=== PATIENT | female | born 1950 | race Caucasian/White ===

== ENCOUNTER → 2018-10-16 15:48 | Outpatient (CLI) | payer OTHER, SELFPAY ==
--- NOTE | 2018-10-16 15:52 | BI_ITS ---
MAMMOGRAPHY - BILATERAL SCREENING REASON FOR EXAM: Female, 68 years old. Routine annual screening examination. PERTINENT HISTORY: Personal history of breast cancer. Prior left lumpectomy with radiation treatment and chemotherapy. TECHNIQUE: Digital bilateral breast blake (3D mammographic acquisition) in the CC and MLO projections. 2-D mediolateral oblique (MLO) and craniocaudad (CC) views of both breasts were obtained. CAD: Full Field Digital Mammography with Computer Added Detection was performed. COMPARISON: Comparison is made with prior study dated August 28, 2017 and July 04, 2016. FINDINGS: Breast Composition: The breasts are heterogeneously dense, which may obscure small masses. There are no dominant masses or suspicious calcifications. The patient is status post lumpectomy in the deep upper lateral aspect of the left breast with resultant postoperative scarring in the architectural distortion. This is unchanged. No other significant abnormalities are identified. There has been no significant change since the prior study. BI/SCREENING MAMM (CAD), BILAT IMPRESSION: Stable bilateral screening mammogram. Yearly follow-up mammogram recommended. (A) ASSESSMENT CATEGORY: BIRADS Category 2: Benign. A letter regarding these results will be sent to the patient by the facility within 30 days. Approximately 10% of breast cancers are not detected by mammography. A normal mammogram should not delay biopsy of a clinically suspicious abnormality. [id number] Electronically Signed: Ivan De La O, at 10:08 EDT , Service support ,
== END ==
PROVIDERS: Family Provider Family Medicine; PCP Family Medicine; Visit Provider Obstetrics & Gynecology
DX: Z12.31 Encounter for screening mammogram for malignant neoplasm of breast (principal)
CPT/HCPCS: 77063; 77067

== ENCOUNTER → 2019-10-06 09:47 | Outpatient (CLI) | payer OTHER, SELFPAY ==
[2019-09-29 17:01] VITALS: BMI 32.0
--- NOTE | 2019-10-06 09:53 | RAD_ITS ---
STUDY: X-RAY CHEST REASON FOR EXAM: Female, 69 years old. cough, ear infection TECHNIQUE: PA and lateral views of the chest. COMPARISON: None CT scan dated September 06, 2015. FINDINGS: Cardiac silhouette unremarkable. Pulmonary vascularity unremarkable. Aorta unremarkable. Right middle lobe airspace disease. COPD. No pleural effusions. Upper abdomen unremarkable. Osseous structures intact with mild degenerative features. No pneumothorax. RAD/Chest PA and Lateral IMPRESSION: Right middle lobe airspace disease (chronic atelectasis versus less likely infection) COPD Electronically Signed: Tyrone Miramontes DO at 9:45 EST Tel , Service support ,
== END ==
PROVIDERS: PCP Family Medicine; Referring Provider Nurse Practitioner Family; Visit Provider Nurse Practitioner Family
DX: R05 Cough (principal)
CPT/HCPCS: 71046

== ENCOUNTER → 2020-02-17 14:20 | Outpatient (CLI) | payer OTHER, SELFPAY ==
[2019-10-21 14:12] VITALS: BMI 32.1
--- NOTE | 2020-02-17 14:24 | BI_ITS ---
MAMMOGRAPHY - BILATERAL SCREENING REASON FOR EXAM: Female, 69 years old. Routine annual screening examination. PERTINENT HISTORY: Personal history of breast cancer. Prior left lumpectomy with radiation and chemotherapy. TECHNIQUE: Digital bilateral breast kathia (3D mammographic acquisition) in the CC and MLO projections. 2-D mediolateral oblique (MLO) and craniocaudad (CC) views of both breasts were obtained. CAD: Full Field Digital Mammography with Computer Added Detection was performed. COMPARISON: Comparison is made with prior examination dated October 16, 2018 and August 28, 2017. FINDINGS: Breast Composition: The breasts are heterogeneously dense, which may obscure small masses. There are no dominant masses or suspicious calcifications. Once again, the patient is status post lumpectomy and in the upper lateral aspect of the left breast with resultant postoperative scarring and architectural distortion. This is unchanged. No other significant abnormalities are identified. There has been no significant change since the prior study. BI/SCREEN MAMM (CAD) W/KATHIA BILAT IMPRESSION: Stable bilateral screening mammogram. Yearly follow-up mammogram recommended. (A) ASSESSMENT CATEGORY: BIRADS Category 2: Benign. A letter regarding these results will be sent to the patient by the facility within 30 days. Approximately 10% of breast cancers are not detected by mammography. A normal mammogram should not delay biopsy of a clinically suspicious abnormality. [id number] Electronically Signed: Ivan De La O, at 15:37 EDT , Service support ,
--- NOTE | 2020-02-17 14:27 | BD_ITS ---
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 COMPARISON: None. FINDINGS: Lumbar Spine (L1-L4): g/cm2 (0.933) / T-score (-2.1) / Z-score (-0.4) Findings are suggestive of osteopenia with a high fracture risk. Left Femur Total: g/cm2 (0.958) / T-score (-0.4) / Z-score (1.0) Left Femoral Neck: g/cm2 (0.893) / T-score (-1.0) / Z-score (0.6) Right Femur Total: g/cm2 (0.958) / T-score (-0.4) / Z-score (1.0) Right Femoral Neck: g/cm2 (0.907) / T-score (-0.9) / Z-score (0.7) BD/Dexa Bone Density Study IMPRESSION: The patient is considered osteopenic as outlined below according to World [employer] Organization (WHO) criteria with a high fracture risk. Reference Information: The T-score is the number of standard deviations above or below the standard which is normal for young adults at their peak bone mineral density. The World Health Organization (WHO) interprets the T-scores as follows: Above -1 Normal bone density Between -1 and -2.5 Osteopenia Equal to / or below -2.5 Osteoporosis As a practical clinical guideline, osteopenia may be graded as follows: Mild -1 through -1.5 Moderate -1.6 through -2.0 Severe -2.1 through -2.4 The Z-score is the number of standard deviations above or below age-matched controls. A Z-score of less than -1.5 would be considered abnormal. References: 1. NIH Osteoporosis and Related Bone Diseases http://www.osteo.org 2. International Society for Clinical Densitometry http://www.iscd.org 3. National Osteoporosis Foundation http://www.nof.org Electronically Signed: Ivan De La O, at 13:48 EDT , Service support ,
== END ==
PROVIDERS: PCP Family Medicine; Referring Provider Obstetrics & Gynecology; Visit Provider Obstetrics & Gynecology
DX: Z12.31 Encounter for screening mammogram for malignant neoplasm of breast (principal); Z13.820 Encounter for screening for osteoporosis
CPT/HCPCS: 77063; 77067; 77080

== ENCOUNTER → 2021-06-17 11:51 | Outpatient (CLI) | payer BC, SELFPAY ==
--- NOTE | 2021-06-17 11:54 | BI_ITS ---
MAMMOGRAPHY - BILATERAL SCREENING REASON FOR EXAM: Female, 71 years old. Routine annual screening examination. PERTINENT HISTORY: Personal history of breast cancer. Prior left lumpectomy with radiation treatment. TECHNIQUE: Digital bilateral breast kathia (3D mammographic acquisition) in the CC and MLO projections. 2-D mediolateral oblique (MLO) and craniocaudad (CC) views of both breasts were obtained. CAD: Full Field Digital Mammography with Computer Added Detection was performed. COMPARISON: Comparison is made with prior study dated 02/17/2020 and 10/16/2018. FINDINGS: Breast Composition: The breasts are heterogeneously dense, which may obscure small masses. There are no dominant masses or suspicious calcifications. Once again, the patient is status post lumpectomy in the upper lateral aspect of the left breast with resultant postoperative scarring and architectural distortion of the breast. Postoperative microcalcifications are seen at the operative site. No other significant abnormalities are identified. There has been no significant change since the prior study. BI/SCRN MAMM (CAD)W/KATHIA BILAT IMPRESSION: Stable bilateral screening mammogram. Yearly follow-up mammogram recommended. (A) ASSESSMENT CATEGORY: BIRADS Category 2: Benign. A letter regarding these results will be sent to the patient by the facility within 30 days. Approximately 10% of breast cancers are not detected by mammography. A normal mammogram should not delay biopsy of a clinically suspicious abnormality. [id number] Electronically Signed: Ivan De La O MD at 12:56 EST , Service support ,
== END ==
PROVIDERS: PCP Family Medicine; Referring Provider Obstetrics & Gynecology; Visit Provider Obstetrics & Gynecology
DX: Z12.31 Encounter for screening mammogram for malignant neoplasm of breast (principal)
CPT/HCPCS: 77063; 77067

== ENCOUNTER → 2022-07-25 | Outpatient (CLI) | payer BC, SELFPAY ==
--- NOTE | 2022-07-25 15:21 | BI_ITS ---
MAMMOGRAPHY - BILATERAL SCREENING REASON FOR EXAM: Female, 72 years old. Routine annual screening examination. PERTINENT HISTORY: Personal history of breast cancer. Prior left lumpectomy with radiation and chemotherapy. TECHNIQUE: Digital bilateral breast kathia (3D mammographic acquisition) in the CC and MLO projections. 2-D mediolateral oblique (MLO) and craniocaudad (CC) views of both breasts were obtained. CAD: Full Field Digital Mammography with Computer Added Detection was performed. COMPARISON: Comparison is made with prior study dated 06/17/2021 and 02/17/2020. FINDINGS: Breast Composition: The breasts are heterogeneously dense, which may obscure small masses. There are no dominant masses or suspicious calcifications. Once again, the patient is status post lumpectomy in the upper lateral aspect of the left breast with resultant postoperative scarring and architectural distortion. Surgical clips as well as dystrophic calcification are seen at the operative site. Surgical clips are also seen in the left axillary region. No other significant abnormalities are identified. There has been no significant change since the prior study. BI/SCRN MAMM (CAD)W/KATHIA BILAT IMPRESSION: Stable bilateral screening mammogram. Yearly follow-up mammogram recommended. (A) ASSESSMENT CATEGORY: BIRADS Category 2: Benign. A letter regarding these results will be sent to the patient by the facility within 30 days. Approximately 10% of breast cancers are not detected by mammography. A normal mammogram should not delay biopsy of a clinically suspicious abnormality. [id number] Electronically Signed: Ivan De La O MD at 8:20 EST ,
== END | disposition home or self-care (01) ==
LOC: OPBI 15:18
PROVIDERS: PCP Family Medicine; Visit Provider Student in an Organized Health Care Education/Training Program
DX: Z12.31 Encounter for screening mammogram for malignant neoplasm of breast (principal); Z92.21 Personal history of antineoplastic chemotherapy; Z85.3 Personal history of malignant neoplasm of breast
CPT/HCPCS: 77063; 77067

== ENCOUNTER → 2022-12-11 | Outpatient (CLI) | payer BC, SELFPAY ==
--- NOTE | 2022-12-11 10:28 | MRI_ITS ---
EXAM: MR HEAD WITHOUT AND WITH INTRAVENOUS CONTRAST CLINICAL INDICATION: None provided. tremor TECHNIQUE: Multiplanar and multisequence MR images of the brain were obtained without and with intravenous contrast. CONTRAST: clariscan 15ml IV COMPARISON: No relevant prior studies available. FINDINGS: BRAIN AND EXTRA-AXIAL SPACES: Unremarkable. No intra- or extra-axial hemorrhage. No evidence of acute infarct. No intracranial mass or mass effect. There is preservation of the [place]/white matter interface. Posterior fossa structures are unremarkable. Ventricles are appropriate for age. No hydrocephalus. Basal cisterns are patent. SELLA: Unremarkable. Normal sella turcica, pituitary gland, infundibular stalk, optic chiasm and hypothalamus. AUDITORY SYSTEM: Unremarkable. The internal auditory canals are patent. BONES/JOINTS: Unremarkable. No discrete lytic or blastic abnormalities. SINUSES: Sinus disease noted. MASTOID AIR CELLS: Unremarkable as visualized. Clear. ORBITS: Unremarkable as visualized. Both globes, extraocular muscles, optic nerves and retrobulbar fat appear unremarkable. VASCULATURE: Unremarkable as visualized. Normal flow voids in the major intracranial circulation. MRI/Brain W/WO Contrast IMPRESSION: No acute findings in the head/brain. Electronically Signed: Jorge L Agustin MD at 15:25 EDT ,
[2022-12-11 11:06] LABS: CREATININE FINGERSTICK < 0.9 mg/dL (0.55-1.02); EGFR FINGERSTICK > 60.0000 mL/min (>60)
== END | disposition home or self-care (01) ==
PROVIDERS: PCP Family Medicine; Referring Provider Family Medicine; Visit Provider Family Medicine
DX: G96.9 Disorder of central nervous system, unspecified (principal); R25.1 Tremor, unspecified
CPT/HCPCS: 70553; A9575

== ENCOUNTER → 2023-02-07 | Outpatient (CLI) | payer BC, SELFPAY ==
[2023-02-07 16:49] LABS: Absolute Lymphocyte Count 3.24 X10^3/uL (0.83-4.51); Absolute Neutrophil Count 6.1 X10^3/uL (2.0-7.7); Basophil# 0.05 X10^3/uL; Basophil% 0.5 % (0-1); Eosinophil# 0.19 X10^3/uL; Eosinophils% 1.8 % (0-5); Hematocrit 41.2 % (37-47); Hemoglobin 13.8 g/dL (12.0-15.0); Lymphocyte # 3.24 X10^3/ul (0.83-4.51); Lymphocyte % 31.3 % (19-41); Mean Corp Hgb Conc 33.5 g/dL (32-36); Mean Corpuscular Hgb 30.5 pg (27.0-32.0); Mean Corpuscular Volume 90.9 fL (81-99); Mean Platelet Vol. 9.4 fl (6.2-12.0); Monocyte% 6.8 % (0-10); NRBC Flagged by Analyzer 0 % (0-5); Neutrophil # 6.13 X10^3/uL (2.7-7.7); Neutrophil % 59.3 % (47-70); Platelet Count 251 K/mm3 (150-450); RBC Distribution Width CV 12.9 % (11.6-14.6); RBC Distribution Width SD 42.7 fl (35.1-43.9); Red Blood Count 4.53 M/mm3 (4.2-5.4); White Blood Count 10.3 K/mm3 (4.4-11.0)
[2023-02-07 17:21] LABS: Anion Gap 5 (5-15); BUN 18 mg/dL (7-18); BUN/Creat Ratio 24.8 RATIO (10-20); Calcium,Total 9.3 mg/dL (8.5-10.1); Chloride 105 mmol/L (98-107); Creatinine, Serum 0.73 mg/dL (0.55-1.02); EST Glomerular Filtration Rate 84 mL/min (>60); Est Glom Filt Rate - Afr Amer 102 mL/min (>60); Glucose 78 mg/dL (74-106); Potassium 4.5 mmol/L (3.5-5.1); Sodium Level 139 mmol/L (136-145); Thyroid Stim Hormone (TSH) 2.08 uIU/mL (0.358-3.74)
== END | disposition home or self-care (01) ==
LOC: BIMLAB 15:33
PROVIDERS: PCP Family Medicine; Referring Provider Family Medicine; Visit Provider Family Medicine
DX: R53.83 Other fatigue (principal); G96.9 Disorder of central nervous system, unspecified; R25.1 Tremor, unspecified; E78.00 Pure hypercholesterolemia, unspecified
CPT/HCPCS: 36415; 80048; 84443; 85025

== ENCOUNTER → 2024-05-27 | Outpatient (CLI) | payer BC, SELFPAY ==
--- NOTE | 2024-05-27 08:40 | BI_ITS ---
MAMMOGRAPHY - BILATERAL SCREENING REASON FOR EXAM: Female, 74 years old. Routine annual screening examination. PERTINENT HISTORY: Personal history of breast cancer. Prior left lumpectomy with radiation and chemotherapy. TECHNIQUE: Digital bilateral breast kathia (3D mammographic acquisition) in the CC and MLO projections. 2-D mediolateral oblique (MLO) and craniocaudad (CC) views of both breasts were obtained. CAD: Full Field Digital Mammography with Computer Added Detection was performed. COMPARISON: Comparison is made with prior study July 25, 2022 and June 17, 2021. FINDINGS: Breast Composition: The breasts are heterogeneously dense, which may obscure small masses. There are no dominant masses or suspicious calcifications. Once again, the patient is status post lumpectomy in the upper outer aspect of the left breast with resultant postoperative scarring and architectural distortion. Surgical clips are also seen in the left axilla. Stable dystrophic calcification at the operative site. No other significant abnormalities are identified. There has been no significant change since the prior study. BI/SCRN MAMM (CAD)W/KATHIA BILAT IMPRESSION: Stable bilateral screening mammogram. Yearly follow-up mammogram recommended. (A) ASSESSMENT CATEGORY: BIRADS Category 2: Benign. A letter regarding these results will be sent to the patient by the facility within 30 days. Approximately 10% of breast cancers are not detected by mammography. A normal mammogram should not delay biopsy of a clinically suspicious abnormality. [id number] Electronically Signed: Ivan De La O MD at 9:43 EDT ,
== END | disposition home or self-care (01) ==
LOC: OPBI 08:40
PROVIDERS: PCP Family Medicine; Referring Provider Family Medicine; Visit Provider Family Medicine
DX: Z12.31 Encounter for screening mammogram for malignant neoplasm of breast (principal); Z85.3 Personal history of malignant neoplasm of breast; Z92.21 Personal history of antineoplastic chemotherapy
CPT/HCPCS: 77063; 77067

== ENCOUNTER 2024-09-02 08:34 | Day surgery (SDC) | payer BC, SELFPAY ==
--- NOTE | 2024-09-01 09:14 | PAT.ANE_ITS ---
Pre-Assessment Diagnosis/Proposed Procedure Planned Operative Procedure(s): CSCOPE Anesthesia History Anesthesia History - glass cut off tender: Anesthesia History - glass cut off tender Hx Hospitalization No 08/29/24 13:49 Any Problems With Anesthesia No 08/29/24 13:49 Cholinesterase deficiency No 08/29/24 13:49 You/Your Family Experience No 08/29/24 13:49 fever (hyperthermia) with Relationship Recent Exposure to Contagious Disease Does patient have nerve No 08/29/24 13:49 stimulator Patient instructed to have device shut off --Does patient have Pacemaker or ICD? When Was Last Pacemaker Check QUESTION #4 FULL TEXT: You/Your Family Experience fever (hyperthermia) with Anesthesia Last Oral Intake Last Oral intake: Last Oral Intake NPO since Meds taken in AM with sips of water? Meds patient instructed to take am of surgery PONV PONV - glass cut off tender: PONV - glass cut off tender Female Yes 08/29/24 13:49 HX of Motion Sickness No 08/29/24 13:49 HX of N/V After Surgery No 08/29/24 13:49 Non-Smoker Yes 08/29/24 13:49 Duration of Surgery greater No 08/29/24 13:49 than 60 minutes Number of Risk Factors 2 08/29/24 13:49 PONV Score Moderate Risk 08/29/24 13:49 Height & Weight Height & Weight: Anesthesia: Height & Weight Height 5 ft 1 in 07/18/24 14:05 Respiratory Assessment Respiratory Assessment - glass cut off tender: Respiratory Tract Infection Hx - glass cut off tender Hx Respiratory Tract Infection No 08/29/24 13:49 STOP Sleep Apnea STOP Sleep Apnea - glass cut off tender: STOP Sleep Apnea - glass cut off tender Hx Hypertension No 08/29/24 13:49 Hx Sleep Apnea No 08/29/24 13:49 CPAP BIPAP Do you snore loudly (louder No 08/29/24 13:49 than talking or can be heard Do you often feel tired/ No 08/29/24 13:49 fatigued/ sleepy during daytime? Has anyone observed you stop No 08/29/24 13:49 breathing during sleep? STOP Results Negative 08/29/24 13:49 QUESTION #5 FULL TEXT : Do you snore loudly (louder than talking or can be heard through closed doors)? 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 History - glass cut off tender: /Reproductive Hx- glass cut off tender Hx Now No 08/29/24 13:49 Gestational Age (in weeks): EDC: Hx Hx Para Hx Section SAB No 08/29/24 13:49 PFSH Medical History Wears glasses Bladder disease Hepatitis Easy bruising Non-smoker History of edema Parkinson's disease History of anal fissures Osteoporosis High cholesterol Breast cancer Home Medications ?Medication ?Instructions ?Recorded ?Last Taken ?Type Osteo BiFlex with Vitamin D 1 cap PO DAILY 04/29/19 History lutein 20 mg capsule 20 mg PO DAILY 04/29/1908/07 History omega-3 fatty acids 500 mg capsule 500 mg PO DAILY 08/24/24 History turmeric 400 mg capsule 400 mg PO DAILY 09/26/19 History ascorbic acid (vitamin C) 1,000 mg 1 g PO DAILY 08/31/24 History tablet (C-1000) cholecalciferol (vitamin D3) 25 25 mcg PO DAILY 08/31/24 History mcg (1,000 unit) capsule (Vitamin D3) magnesium 250 mg tablet 250 mg PO DAILY 08/29/24 History Allergy/AdvReac Type Severity Reaction Status Date / Time No Known Allergies Allergy Verified 09/02/24 08:55 Family History Father Cancer Mother Parkinson disease Surgical History Hx of right cataract extraction Hx of left cataract extraction Hx of colonoscopy Status post breast lumpectomy History of carpal tunnel release History of exploratory laparotomy History of umbilical hernia repair Social History Smoking Status: Never smoker alcohol intake: never substance use type: does not use what type of physical activity do you participate in: decline to answer Recommendation Anesthesia Recommendation Anesthesia recommendation: OPTIMIZED for anesthesia
--- NOTE | 2024-09-01 11:04 | PAT.ANE_ITS ---
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 When Was Last Pacemaker Check QUESTION #4 FULL TEXT: You/Your Family Experience fever (hyperthermia) with Anesthesia Last Oral Intake Last Oral intake: Last Oral Intake NPO since Meds taken in AM with sips of water? 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 Has anyone observed you stop No 08/29/24 13:49 breathing during sleep? STOP Results Negative 08/29/24 13:49 QUESTION #5 FULL TEXT : Do you snore loudly (louder than talking or can be heard through closed doors)? 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: /Reproductive Hx- grounds/maintenance specialist Hx Now No 08/29/24 13:49 Gestational Age (in weeks): EDC: Hx Hx Para Hx Section SAB No 08/29/24 13:49 PFSH Medical History Wears glasses Bladder disease Hepatitis Easy bruising Non-smoker History of edema Parkinson's disease History of anal fissures Osteoporosis High cholesterol Breast cancer Home Medications ?Medication ?Instructions ?Recorded ?Last Taken ?Type Osteo BiFlex with Vitamin D 1 cap PO DAILY 04/29/19 Unknown History lutein 20 mg capsule 20 mg PO DAILY 04/29/19 Unknown History omega-3 fatty acids 500 mg capsule 500 mg PO DAILY 04/29/19 08/24/24 History turmeric 400 mg capsule 400 mg PO DAILY 09/26/19 08/24/24 History ascorbic acid (vitamin C) 1,000 mg 1 g PO DAILY 08/29/24 Unknown History tablet (C-1000) cholecalciferol (vitamin D3) 25 25 mcg PO DAILY 08/29/24 Unknown History mcg (1,000 unit) capsule (Vitamin D3) magnesium 250 mg tablet 250 mg PO DAILY 08/29/24 Unknown History Allergy/AdvReac Type Severity Reaction Status Date / Time No Known Allergies Allergy Verified 09/01/24 10:51 Family History Father Cancer Mother Parkinson disease Surgical History Hx of right cataract extraction Hx of left cataract extraction Hx of colonoscopy Status post breast lumpectomy History of carpal tunnel release History of exploratory laparotomy History of umbilical hernia repair Social History Smoking Status: Never smoker alcohol intake: never substance use type: does not use what type of physical activity do you participate in: decline to answer Audit: Pertinent Findings Pertinent Findings EKG Perinent findings: Last EKG NAD. Current Visit Impressions Current Visit Impressions: No new cardiac symptoms. Recommendation Anesthesia Recommendation Anesthesia recommendation: OPTIMIZED for anesthesia
--- NOTE | 2024-09-01 12:00 | PAT.ANESEVAL ---
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 When Was Last Pacemaker Check QUESTION #4 FULL TEXT: You/Your Family Experience fever (hyperthermia) with Anesthesia Last Oral Intake Last Oral intake: Last Oral Intake NPO since Meds taken in AM with sips of water? Meds patient instructed to take am of surgery PONV PONV - centerless grinder set up operator: PONV - centerless grinder set up operator Female Yes 08/29/24 13:49 HX of Motion Sickness No 08/29/24 13:49 HX of N/V After Surgery No 08/29/24 13:49 Non-Smoker Yes 08/29/24 13:49 Duration of Surgery greater No 08/29/24 13:49 than 60 minutes Number of Risk Factors 2 08/29/24 13:49 PONV Score Moderate Risk 08/29/24 13:49 Height & Weight Height & Weight: Anesthesia: Height & Weight Height 5 ft 1 in 07/18/24 14:05 Respiratory Assessment Respiratory Assessment - centerless grinder set up operator: Respiratory Tract Infection Hx - centerless grinder set up operator Hx Respiratory Tract Infection No 08/29/24 13:49 STOP Sleep Apnea STOP Sleep Apnea - centerless grinder set up operator: STOP Sleep Apnea - centerless grinder set up operator Hx Hypertension No 08/29/24 13:49 Hx Sleep Apnea No 08/29/24 13:49 CPAP BIPAP Do you snore loudly (louder No 08/29/24 13:49 than talking or can be heard Do you often feel tired/ No 08/29/24 13:49 fatigued/ sleepy during daytime? Has anyone observed you stop No 08/29/24 13:49 breathing during sleep? STOP Results Negative 08/29/24 13:49 QUESTION #5 FULL TEXT : Do you snore loudly (louder than talking or can be heard through closed doors)? 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 History - centerless grinder set up operator: /Reproductive Hx- centerless grinder set up operator Hx Now No 08/29/24 13:49 Gestational Age (in weeks): EDC: Hx Hx Para Hx Section SAB No 08/29/24 13:49 PFSH Medical History Wears glasses Bladder disease Hepatitis Easy bruising Non-smoker History of edema Parkinson's disease History of anal fissures Osteoporosis High cholesterol Breast cancer Home Medications ?Medication ?Instructions ?Recorded ?Last Taken ?Type Osteo BiFlex with Vitamin D 1 cap PO DAILY 04/29/19 Unknown History lutein 20 mg capsule 20 mg PO DAILY 04/29/19 Unknown History omega-3 fatty acids 500 mg capsule 500 mg PO DAILY 04/29/19 08/24/24 History turmeric 400 mg capsule 400 mg PO DAILY 09/26/19 08/24/24 History ascorbic acid (vitamin C) 1,000 mg 1 g PO DAILY 08/29/24 Unknown History tablet (C-1000) cholecalciferol (vitamin D3) 25 25 mcg PO DAILY 08/29/24 Unknown History mcg (1,000 unit) capsule (Vitamin D3) magnesium 250 mg tablet 250 mg PO DAILY 08/29/24 Unknown History Allergy/AdvReac Type Severity Reaction Status Date / Time No Known Allergies Allergy Verified 09/01/24 10:51 Family History Father Cancer Mother Parkinson disease Surgical History Hx of right cataract extraction Hx of left cataract extraction Hx of colonoscopy Status post breast lumpectomy History of carpal tunnel release History of exploratory laparotomy History of umbilical hernia repair Social History Smoking Status: Never smoker alcohol intake: never substance use type: does not use what type of physical activity do you participate in: decline to answer Audit: Pertinent Findings HISTORY of Pertinent Findings History of Pertinent Findings: EKG Pertinent Findings EKG Perinent findings Last EKG NAD. 09/01/24 11:10 Recommendation Anesthesia Recommendation Anesthesia recommendation: OPTIMIZED for anesthesia
[2024-09-02] VITALS (7 sets, daily range): BP systolic 96–121; BP diastolic 45–62; PULSE 66–79; RESP 14–20; TEMP 36.4–36.6; O2SAT 98–100; BMI 29.1
--- NOTE | 2024-09-02 09:25 | PCM.PRE.AN2 ---
ASA Classification* ASA Classification ASA Classification: 2 Assessment & Plan Anesthesia* Anesthesia Assessment Anesthesia Assessment: Discussed sedation and/or anesthesia options, risks, benefits, and alternatives with patient/parents/legal guardian/POA. Questions invited. The patient/parents/legal guardian/POA seems to understand and agrees to proceed with anesthesia plan. Reviewed the physical assessment, medical history, allergy history and patient home medications list prior to surgery/procedure/anesthetic and documented any changes. Performed airway and anesthesia risk assessments. Anesthesia Type Anesthesia Type: MAC History Source History Obtained from:: Patient and Chart Anesthesia Focused Assessment* Temperature: 97.9 F Pulse Rate: 79 Blood Pressure: 121/58 Respiratory Rate: 20 Pulse Ox: 100 Oxygen Delivery Method: Room Air Airway Assessment Mouth opens: >3 cm Mallampati Score: I Teeth Condition: Intact Neck Range of motion (ROM): Limited ROM (Slight decrease in extension) Focused Labs Anesthesia Preop lab: CBC WBC 10.3 K/mm3 (4.4-11.0) 02/07/23 15:33 RBC 4.53 M/mm3 (4.2-5.4) 02/07/23 15:33 Hgb 13.8 g/dL (12.0-15.0) 02/07/23 15:33 Hct 41.2 % (37-47) 02/07/23 15:33 Plt Count 251 K/mm3 (150-450) 02/07/23 15:33 CHEMISTRY Potassium 4.5 mmol/L (3.5-5.1) 02/07/23 15:33 Sodium 139 mmol/L (136-145) 02/07/23 15:33 BUN 18 mg/dL (7-18) 02/07/23 15:33 Creatinine 0.73 mg/dL (0.55-1.02) 02/07/23 15:33 Glucose 78 mg/dL (74-106) 02/07/23 15:33 TSH 2.08 uIU/mL (0.358-3.74) 02/07/23 15:33 COAG Pre-Assessment Diagnosis/Proposed Procedure Planned Operative Procedure(s): CSCOPE Anesthesia History 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 When Was Last Pacemaker Check QUESTION #4 FULL TEXT: You/Your Family Experience fever (hyperthermia) with Anesthesia Last Oral Intake Last Oral intake: Last Oral Intake NPO since 22:00 09/02/24 08:56 Meds taken in AM with sips of water? 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: PONV - supervisor beam department Female Yes 08/29/24 13:49 HX of Motion Sickness No 08/29/24 13:49 HX of N/V After Surgery No 08/29/24 13:49 Non-Smoker Yes 08/29/24 13:49 Duration of Surgery greater No 08/29/24 13:49 than 60 minutes Number of Risk Factors 2 08/29/24 13:49 PONV Score Moderate Risk 08/29/24 13:49 Height & Weight Height & Weight: Anesthesia: Height & Weight Height 5 ft 1 in 09/02/24 08:56 Weight: 70 kg 09/02/24 08:56 Body Mass Index (BMI) 29.1 09/02/24 08:56 Respiratory Assessment Respiratory Assessment - supervisor beam department: Respiratory Tract Infection Hx - supervisor beam department Hx Respiratory Tract Infection No 08/29/24 13:49 STOP Sleep Apnea STOP Sleep Apnea - supervisor beam department: STOP Sleep Apnea - supervisor beam department Hx Hypertension No 08/29/24 13:49 Hx Sleep Apnea No 08/29/24 13:49 CPAP BIPAP Do you snore loudly (louder No 08/29/24 13:49 than talking or can be heard Do you often feel tired/ No 08/29/24 13:49 fatigued/ sleepy during daytime? Has anyone observed you stop No 08/29/24 13:49 breathing during sleep? STOP Results Negative 08/29/24 13:49 QUESTION #5 FULL TEXT : Do you snore loudly (louder than talking or can be heard through closed doors)? 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 History - supervisor beam department: /Reproductive Hx- supervisor beam department Hx Now No 08/29/24 13:49 Gestational Age (in weeks): EDC: Hx Hx Para Hx Section SAB No 08/29/24 13:49 PFSH Medical History Wears glasses Bladder disease Hepatitis Easy bruising Non-smoker History of edema Parkinson's disease History of anal fissures Osteoporosis High cholesterol Breast cancer Home Medications ?Medication ?Instructions ?Recorded ?Last Taken ?Type Osteo BiFlex with Vitamin D 1 cap PO DAILY 04/29/19 08/31/24 History lutein 20 mg capsule 20 mg PO DAILY 04/29/19 08/31/24 History omega-3 fatty acids 500 mg capsule 500 mg PO DAILY 04/29/19 08/24/24 History turmeric 400 mg capsule 400 mg PO DAILY 09/26/19 08/24/24 History ascorbic acid (vitamin C) 1,000 mg 1 g PO DAILY 08/29/24 08/31/24 History tablet (C-1000) cholecalciferol (vitamin D3) 25 25 mcg PO DAILY 08/29/24 08/31/24 History mcg (1,000 unit) capsule (Vitamin D3) magnesium 250 mg tablet 250 mg PO DAILY 08/29/24 08/31/24 History Allergy/AdvReac Type Severity Reaction Status Date / Time No Known Allergies Allergy Verified 09/02/24 08:55 Family History Father Cancer Mother Parkinson disease Surgical History Hx of right cataract extraction Hx of left cataract extraction Hx of colonoscopy Status post breast lumpectomy History of carpal tunnel release History of exploratory laparotomy History of umbilical hernia repair Social History Smoking Status: Never smoker alcohol intake: never substance use type: does not use what type of physical activity do you participate in: decline to answer Review of Systems (Anesthesia) ROS Narrative System reviewed and no additional complaints, except as documented.
--- NOTE | 2024-09-02 09:43 | PCM.HP.BLA ---
History and Physical Date of Admission: 09/02/24 Intake Vital Signs 07/15/2411:05 07/18/2414:05 Height 5 ft 1 in 5 ft 1 in Weight: 161 lb 8 oz 161 lb BMI 30.5 30.4 BP 122/68 H 114/71 Blood Pressure Location Lt brachial Rt brachial Position Sitting Sitting Respiration 16 18 Pulse 72 78 Pulse Source Monitor Monitor Temp 97.7 F L 97.3 F L Temp Source Temporal Temporal Pulse Oximetry (%) 99 100 Oxygen Delivery Method room air room air Intake Visit Reasons: CHRONIC CONSTIPATION Chief Complaint: constipation Is patient in pain?: No Allergies No Known Allergies Allergy (Verified 07/18/24 14:05) Medications ?Medication ?Instructions ?Recorded ?Confirmed ?Type Calcium Magnesium, D complex PO 04/29/19 07/18/24 History Osteo BiFlex with Vitamin D PO 04/29/19 07/18/24 History lutein 20 mg capsule 20 mg PO DAILY 04/29/19 07/18/24 History omega-3 fatty acids 500 mg capsule 500 mg PO DAILY 04/29/19 07/18/24 History turmeric 400 mg capsule mg PO DAILY 09/26/19 07/18/24 History propranolol 60 mg capsule,24 60 mg PO DAILY #30 caps 09/25/23 07/18/24 Rx hr,extended release linaclotide 145 mcg capsule 145 mcg PO QAM #14 caps 07/15/24 07/18/24 Rx (Linzess) Have you fallen in the past year?: No PFSH Medical History History of anal fissures Pneumonia Osteoporosis High cholesterol Carpal tunnel syndrome Breast cancer Surgical History Status post breast lumpectomy History of carpal tunnel release History of exploratory laparotomy History of umbilical hernia repair Family History Father CancerMother Parkinson disease Social History Smoking Status: Never smoker alcohol intake: never substance use type: does not use what type of physical activity do you participate in: decline to answer HPI HPI HPI: Patient is a 74-year-old female who comes in with stool caliber changes. She says that her sister few months ago and ever since she has been having severe constipation and only going every few days. She also notes that her stool caliber has changed to pencil thin. Her last colonoscopy was 7 to 8 years ago and was normal. She denies blood in the stool or abdominal pain. ROS General General: Yes breast cancer; No weight change, appetite, fatigue, colon cancer or weakness HEENT HEENT: No difficulty swallowing, eye injury, eye surgery, swollen glands or hoarseness Endo Endocrine: No thyroid disease, diabetes mellitus, thyroid cancer, Hair loss, heat intolerance or cold intolerance Skin Skin: No rash or changing moles Musc Musculoskeletal: No back problems, arthritis, rheumatoid arthritis, gout or joint pain Cardio Cardiovascular: No murmur, pacemaker, heart disease, atrial fibrillation, high blood pressure, heart attack, heart stent, palpitations, shortness of breat with exertion or chest pain Psych Psychiatric: No depression, anxiety or hearing voices Resp Respiratory: No shortness of breath, No sleep apnea, No cough, No COPD, No asthma, No emphysema and No wheezing Gastro Gastrointestinal: No abdominal pain, No nausea or vomiting, No diarrhea, Yes constipation, No blood in stool, No acid reflux, Yes hemorrhoids, No ulcers, No gallbladder problem and No black,tarry stools Lonnie Hematologic: Yes blood thinners, No blood disorders, No bleeding, No anemia and No blood clots Additional Details: fish oil/ tumeric Neuro Neurologic: No numbness, No tingling and No weakness Exam Const General: cooperative Orientation: alert and oriented x3 HENMT Head: normal to inspection Neck Neck: normal visual inspection and full ROM Chest Chest palpation & inspection: normal inspection of the chest Resp Effort & Inspection: normal respiratory effort Auscultation: clear to auscultation bilaterally Cardio Rate: regular rate Rhythm: regular rhythm GI Inspection: non-distended Palpation: soft and nontender Skin General: no rashes or lesions noted Neuro General: patient alert and patient oriented x3 Extrem General: full ROM Psych Appearance: grossly normal Mental Status: mental status grossly normal Assessment and Plan Assessment and Plan (1) Chronic idiopathic constipation: Status: Chronic Plan: Patient has chronic constipation but she is also having stool caliber changes. I will perform a colonoscopy to evaluate as to the cause to make sure there is not a polyp or mass that is blocking the colon. I discussed this with her in detail. I explained endoscopy in detail to the patient. I explained the risks including but not limited to stroke or heart attack with anesthesia, perforation of the GI tract, bleeding, infection. I explained that any of these could necessitate further emergency surgery. The patient understands and all questions were answered sufficiently. The patient wishes to proceed with procedure. Russ Cleveland MD Pager: [facility] [address] [place] [address] [address] [place] [address] Office: I have examined the patient and the H&P has been reviewed. There are no clinical changes since date of exam.
--- NOTE | 2024-09-02 10:11 | OP.COLON_ITS ---
Patient Name: Lyubov Olivarez Procedure Date: 09/02/2024 9:53 AM Date of : 1950 Age: 74 Procedure: Colonoscopy Indications: Change in stool caliber Providers: Russ Cleveland MD Referring MD: Dustin Valle Medicines: Propofol per Anesthesia Patient Profile: This is a 74 year old female. Refer to note in patient chart for documentation of history and physical. Last Colonoscopy: several years ago. Complications: No immediate complications. Procedure: Pre-Anesthesia Assessment: - Prior to the procedure, a History and Physical was performed, and patient medications and allergies were reviewed. The patient's tolerance of previous anesthesia was also reviewed. The risks and benefits of the procedure and the sedation options and risks were discussed with the patient. All questions were answered, and informed consent was obtained. Prior Anticoagulants: The patient has taken no anticoagulant or antiplatelet agents. After reviewing the risks and benefits, the patient was deemed in satisfactory condition to undergo the procedure. After I obtained informed consent, the scope was passed under direct vision. Throughout the procedure, the patient's blood pressure, pulse, and oxygen saturations were monitored continuously. The Colonoscope was introduced through the anus and advanced to the cecum, identified by appendiceal orifice and ileocecal valve. The colonoscopy was performed without difficulty. The patient tolerated the procedure well. The quality of the bowel preparation was good. The ileocecal valve, appendiceal orifice, and rectum were photographed. Scope In: 9:57:55 AM Scope Withdrawal Time 0 hours 4 minutes 48 seconds Scope Out: 10:09:09 AM Total Procedure Duration Time 0 hours 11 minutes 14 seconds Findings: The entire examined colon appeared normal on direct and retroflexion views. Impression: - The entire examined colon is normal on direct and retroflexion views. - No specimens collected. Recommendation: - Discharge patient to home. - Resume previous diet. - Continue present medications. - Repeat colonoscopy is not recommended due to current age (66 years or older) for screening purposes. Procedure Code(s): --- Professional --- 69141, Colonoscopy, flexible; diagnostic, including collection of specimen(s) by brushing or washing, when performed (separate procedure) Diagnosis Code(s): --- Professional --- R19.5, Other fecal abnormalities CPT copyright 2021 [employer]. All rights reserved. The codes documented in this report are preliminary and upon clinical coder review may be revised to meet current compliance requirements. Russ Cleveland MD 09/02/2024 10:11:14 AM This report has been signed electronically. Number of Addenda: 0 Note Initiated On: 09/02/2024 9:53 AM
--- NOTE | 2024-09-02 10:11 | OP.CCLET_ITS ---
09/02/2024 Dustin Valle Re : Colonoscopy procedure for Lyubov Olivarez Dear Dr. Valle This procedure was performed on Monday, September 02, 2024. My impressions and recommendations are as follows: Impressions : - The entire examined colon is normal on direct and retroflexion views. - No specimens collected. Recommendations : - Discharge patient to home. - Resume previous diet. - Continue present medications. - Repeat colonoscopy is not recommended due to current age (66 years or older) for screening purposes. My findings are described in the full procedure note, which is enclosed. If I can be of further assistance, please feel free to contact me at Doctor phone number(s): , Work: . Sincerely, Russ Cleveland MD 09/02/2024 10:11:14 AM This report has been signed electronically.
--- NOTE | 2024-09-02 10:14 | PCM.POST.ANE ---
Anesthesia: Postop Eval I Current Vital Signs Temperature: 97.8 F Pulse Rate: 72 Blood Pressure: 96/55 Respiratory Rate: 16 Pulse Ox: 98 Assessment Airway patent: Yes Spontaneous unlabored respirations: Yes nausea: No Vomiting: No Anesthesia Complication: No Fluid Hydration Crystalloid volume administer (ml): 30 Total IV fluid infused: 30 Progress Note Anesthesia document: Postop Eval 1 completed: Yes
--- NOTE | 2024-09-02 22:40 | POSTOPAN2_ITS ---
Anesthesia Postop Eval I Sum Postop Eval Completion status Anesthesia document: Postop Eval 1 completed: Yes Anesthesia Postop Eval I Summary Anesthesia Postop Eval I Summary: Anesthesia Postop Eval I: Assessment Summary Airway patent Yes 09/02/24 10:15 [email or web address] Spontaneous unlabored Yes 09/02/24 10:15 [email or web address] respirations Mental status nausea No 09/02/24 10:15 [email or web address] Vomiting No 09/02/24 10:15 [email or web address] Anesthesia Postop Eval I: Fluid Summary Crystalloid volume administer 30 09/02/24 10:15 [email or web address] (ml) Colloids volume administered ( ml) Blood Product volume administered (ml) Total IV fluid infused 30 09/02/24 10:15 [email or web address] Anesthesia Postop Eval I: Summary Notes Anesthesia Complication No 09/02/24 10:15 [email or web address] Anesthesia Complication Comment: Post-operative progress note Anesthesia: Postop Eval II Evaluation Mental status: Awake and Calm Pain Level: 0 nausea: No Vomiting: No Complications Anesthesia Complication: No
--- NOTE | 2024-09-02 22:40 | PCM.POSTANE2 ---
Anesthesia Postop Eval I Sum Postop Eval Completion status Anesthesia document: Postop Eval 1 completed: Yes Anesthesia Postop Eval I Summary Anesthesia Postop Eval I Summary: Anesthesia Postop Eval I: Assessment Summary Airway patent Yes 09/02/24 10:15 [email or web address] Spontaneous unlabored Yes 09/02/24 10:15 [email or web address] respirations Mental status nausea No 09/02/24 10:15 [email or web address] [email or web address] Vomiting No 09/02/24 10:15 [email or web address] Anesthesia Postop Eval I: Fluid Summary Crystalloid volume administer 30 09/02/24 10:15 [email or web address] (ml) Colloids volume administered ( ml) Blood Product volume administered (ml) Total IV fluid infused 30 09/02/24 10:15 [email or web address] [email or web address] Anesthesia Postop Eval I: Summary Notes Anesthesia Complication No 09/02/24 10:15 [email or web address] [email or web address] Anesthesia Complication Comment: Post-operative progress note Anesthesia: Postop Eval II Evaluation Mental status: Awake and Calm Pain Level: 0 nausea: No Vomiting: No Complications Anesthesia Complication: No
== END 2024-09-02 10:50 | disposition home or self-care (01) ==
LOC: EN 08:34 → AC 08:36
PROVIDERS: PCP Family Medicine; Referring Provider Family Medicine; Visit Provider Surgery
PROC: 0DJD8ZZ Inspection of Lower Intestinal Tract, Via Natural or Artificial Opening Endoscopic (ICD-10-PCS; CPT 45378; principal; 2024-09-02 09:40)
DX: K59.04 Chronic idiopathic constipation (principal); E78.00 Pure hypercholesterolemia, unspecified; R19.5 Other fecal abnormalities
CPT/HCPCS: 45378; A4216